=== PATIENT | male | born 1975 | race Caucasian/White ===

== ENCOUNTER → 2017-09-24 | Outpatient (CLI) | payer OTHER ==
--- NOTE | 2017-09-25 12:38 | CPEEG ---
[f rep st] ELECTROENCEPHALOGRAM DATE OF STUDY: 09/24/2017 DATE OF INTERPRETATION: 09/25/2017. INTERPRETATION: Normal EEG during wakefulness and sleep. There were no potentially epileptogenic ab normalities present during the recording. There was prominent beta frequency activity in the patient 's background. This can be a finding related to medication effect or normal physiologic activity. REPORT: This EEG contains 10 Hz alpha activity to the posterior head regions. There was prominent b eta frequency activity present in the background as well. There was no abnormal activation at rest, during photic stimulation or hyperventilation. The patient became drowsy and fell asleep during the study. There was no observation during drowsiness, sleep, or during times of arousal. /[id number]/MODL
== END ==
LOC: FCPNEURO 12:00
PROVIDERS: ATTEND Psychiatry & Neurology Neurology
DX: R55 Syncope and collapse (principal)

== ENCOUNTER 2017-09-27 04:51 | Emergency (ER) | payer OTHER ==
[2017-09-27 05:01] VITALS: RESP 16; TEMP 98.4
[2017-09-27 05:37] LABS: PLATELET COUNT 139 10^3/uL (150-400)
--- NOTE | 2017-09-27 06:00 | EDPHY ---
H & P Stated Complaint: nausea, back pain, took zofran prior to arrival, Hx of PE Time Seen by Provider: 09/27/17 05:32 HPI/ROS: HPI The patient presents with posterior right-sided chest pain that has been present intermittently throughout this week the became worse tonight while he was sleeping and awoke him from sleep. The pain is described as a tightness in a stabbing sensation is, it is not pleuritic though worse with changes in position. He has associated nausea and took a dose of Zofran. He does not have any shortness of breath. He does not have any cough. He does not have any dysuria or hematuria. The pain feels somewhat similar to the pulmonary embolism he had in 2008. This was non provoked, he had testing and no cause of the PE was ascertained. He was on Coumadin for about a year and is no longer taking it.. REVIEW OF SYSTEMS Constitutional: No fever, no chills. Eyes: No discharge. ENT: No sore throat. Cardiovascular: Positive for chest pain, no palpitations. Respiratory: No cough, no shortness of breath. Gastrointestinal: No abdominal pain, no vomiting. Genitourinary: No hematuria. Musculoskeletal: No back pain. Skin: No rashes. Neurological: No headache. PMHx: History of pulmonary embolism in 2007 Soc Hx: Housed, alcohol use PHYSICAL General Appearance: Alert, no distress Eyes: Pupils equal and round no pallor or injection ENT, Mouth: Mucous membranes moist Respiratory: There are no retractions, lungs are clear to auscultation Chest wall: There is point tenderness to the posterior lower rib segments in the midclavicular line on the right Cardiovascular: Regular rate and rhythm Gastrointestinal: Abdomen is soft and non-tender, no masses, bowel sounds normal Neurological: A&O, moves all extremities Skin: Warm and dry, no rashes Musculoskeletal: Neck is supple non tender Extremities: symmetrical, full range of motion Psychiatric: Patient is oriented X 3, there is no agitation Source: Patient Exam Limitations: No limitations - Personal History Current Tetanus/Diphtheria Vaccine: Yes - Medical/Surgical History Hx Asthma: No Hx Chronic Respiratory Disease: No Hx Diabetes: No Hx Cardiac Disease: No Hx Renal Disease: No Hx Cirrhosis: No Hx Alcoholism: No Hx HIV/AIDS: No Hx Splenectomy or Spleen Trauma: No Other PMH: PSHx: wisdom tooth extraction. PMHx: PE x 3 in 2007, vasovagal syncope - Social History Smoking Status: Never smoked Constitutional: Initial Vital Signs Temperature (C) 36.9 C 09/27/17 04:54 Heart Rate 87 09/27/17 04:54 Respiratory Rate 16 09/27/17 04:54 Blood Pressure 137/95 H 09/27/17 04:54 O2 Sat (%) 94 09/27/17 04:54 O2 Delivery Mode Room Air Allergies/Adverse Reactions: No Known Allergies Allergy (Unverified 09/27/17 04:54) Home Medications: Medication Instructions Recorded Trintellix 09/27/17 Medical Decision Making - Diagnostics Imaging Results: Chest x-ray two view shows no cardiomegaly, no effusion, interpreted by me, radiology interpretation is pending. CT scan of chest angiography demonstrates no pulmonary embolism, gallstones are present. Discussed with Dr. King of Radiology. Differential Diagnosis: This is a 42-year-old man, history of PE in 2007 who presents with right-sided posterior chest wall pain which awoke him from sleep tonight. Differential diagnosis includes pneumonia, pneumothorax, pulmonary embolism, nephrolithiasis. In the emergency department, patient denied need for any pain medication. Labs and chest x-ray were checked and were unremarkable. There is no hematuria to suggest kidney stone, chest x-ray was normal and did not reveal any pneumonia or other pathology. D-dimer was checked and was negative. We discussed the risks and benefits of CT scan to evaluate for PE. Given that he has a history of an unprovoked PE several years ago and no alternative diagnosis more likely to explain his pain, CT scan was performed. This thankfully was unremarkable for any pulmonary embolism, however gallstones were visualized in his right upper quadrant. The patient states that he does have a history of gallstones that have been mildly symptomatic. He does not have any fever, leukocytosis, transaminitis, and his pain is quite mild, making acute cholecystitis quite unlikely. He feels well enough to go home, I have recommended he take anti-inflammatory medications. I have given him instructions on dietary modification. I have advised him that he seek care with a general surgeon if his symptoms persist. He is in agreement with this plan and quite happy to go home. - Data Points Laboratory Results: Laboratory Results 09/27/17 05:25 09/27/17 05:25 Departure - Departure Disposition: Home, Routine, Self-Care Clinical Impression: Cholelithiasis Condition: Good Instructions: Biliary Colic (ED), Gallstones (ED) Additional Instructions: Please return to the emergency department if your worse in any way. You should try taking ibuprofen 400 mg with acetaminophen 650 mg every 6 hours as needed for pain. If your pain continues, you should follow up with Dr. Peterson the surgeon for further evaluation. Referrals: Mckay Weaver [Primary Care Provider] - As per Instructions Geovanni Peterson MD [Medical Doctor] - As per Instructions
[2017-09-27] MEDS ORDERED: IOPAMIDOL (ISOVUE-300) 100 ML BTL ONE (07:00)
[2017-09-27] MEDS ORDERED: IOPAMIDOL (ISOVUE 370) 100 ML BTL IV ONE (07:03)
[2017-09-27 08:04] VITALS: BP 143/80; PULSE 82; O2SAT 95
== END 2017-09-27 08:05 | disposition home or self-care (01) ==
DX: K80.20 Calculus of gallbladder without cholecystitis without obstruction (principal)
CPT/HCPCS: Q9967

== ENCOUNTER → 2017-09-30 | Outpatient (CLI) | payer OTHER ==
[~2017-09-30] MED LIST: GADOBUTROL 10 ML VIAL IVP ONE
== END ==
LOC: FIMAGING 10:02
PROVIDERS: ATTEND Psychiatry & Neurology Neurology
DX: R55 Syncope and collapse (principal)
CPT/HCPCS: A9585

== ENCOUNTER 2017-11-19 12:06 | Day surgery (SDC) | payer OTHER ==
[2017-11-19] MEDS ORDERED: LIDOCAINE 1% 300 MG/30 ML SDV SC ONE (12:59)
--- NOTE | 2017-11-19 14:49 | CPIP ---
[f rep st] INVASIVE CARDIAC PROCEDURE DATE OF PROCEDURE: 11/19/2017 INDICATIONS: The patient is 42 years old and has a history of multiple episodes of syncope. PROCEDURE: Implantation of Medtronic LINQ. TECHNIQUE: Following informed consent and in the fasting state, the patient was brought to the [facility]. He was prepped and draped in the usual sterile fashion. 2% lidocaine was infiltrated in the skin ov erlying the 4th intercostal space immediately to the left of the midline. Using a #15 blade, a 1 cm incision was made. The Medtronic LINQ was then injected underneath the skin. The skin was closed wi th 2 therese. COMPLICATIONS: None. DISPOSITION: The patient will be discharged home later today. /[id number]/MODL
== END 2017-11-19 14:19 | disposition home or self-care (01) ==
LOC: FCATH 12:06
PROVIDERS: ATTEND Internal Medicine Cardiovascular Disease
PROC: 0JH602Z Insertion of Monitoring Device into Chest Subcutaneous Tissue and Fascia, Open Approach (ICD-10-PCS; principal; 2017-11-19)
DX: R55 Syncope and collapse (principal); R41.9 Unspecified symptoms and signs involving cognitive functions and awareness
CPT/HCPCS: C1764